=== PATIENT | male | born 1965 | race Hispanic/Latino ===

== ENCOUNTER 2016-07-09 17:43 | Emergency (ER) | payer OTHER ==
[~2016-07-09] VITALS: Ht 172.7 cm; Wt 122.8 kg
[~2016-07-09 17:43] MED LIST: IBUP-1827 PO; METH-313 PO
[2016-07-09 18:03] VITALS: BP 169/104; PULSE 81; RESP 16; O2SAT 97
== END 2016-07-09 20:40 | disposition left against medical advice (07) ==
LOC: SED 17:43
DX: M54.5 Low back pain (principal)

== ENCOUNTER 2016-08-27 23:28 | Emergency (ER) | payer MEDICAID, OTHER ==
[2016-08-27 23:30] VITALS: BP 168/105; PULSE 110; RESP 16; O2SAT 94
--- NOTE | 2016-08-27 23:56 | ED.REPORT ---
HPI-Extremity Problem Lower Date of Service August 27, 2016 ED Provider: Cam Black MD The patient is a 51 year old male with a history of chronic back pain and hypertension who presents to the ED with a right foot injury onset this evening. The patient "stepped wrong" on a curb and twisted his foot with immediate pain. He has been unable to bear weight on the affected foot since. The patient denies additional injury/trauma or other symptoms. Nursing Notes Stated Complaint: R FOOT PAIN Chief Complaint: Extremity Trauma Nursing Notes Reviewed: Yes Allergies: Coded Allergies: No Known Allergies (Unverified , 02/25/16) Scheduled Methocarbamol (Robaxin-750) 750 Mg Tablet 1,500 MG PO QID Scheduled PRN Ibuprofen (Ibuprofen) 600 Mg Tablet 600 MG PO QID PRN PRN For Pain General Time Seen by MD: 23:54 Chief Complaint Foot injury right Hx Obtained From: Patient Arrived By: Walk-in Onset Occurred: 1 - 4 hours ago Symptom Duration: Since onset Location: : Foot right Quality: Painful Severity: Current: Moderate Severity: Maximum: Moderate Pertinent Negative: Relieved by nothing Immunizations: Unknown Recent Healthcare: No recent doctor visit Past Medical History Past Medical History Chronic back pain Reports: Hypertension Past Surgical History None reported Smoking History Unknown if Ever Smoker Social History Other Social History: Good social support, Local resident Ambulatory Status Independent Review of Systems Constitutional: Denies: Fever Musculoskeletal: Reports: Extremity pain (Right Foot) Neurologic: Reports: Problem walking (Unable to bear weight on right foot) Complete sys rev & neg: except as marked. Respiratory: Denies: Non-productive cough, Shortness of breath GI: Denies: Diarrhea, Vomiting Physical Exam Initial Vital Signs Vital Signs (First) Date Time Temp Pulse Resp B/P Pulse Ox O2 Delivery O2 Flow Rate FiO2 08/27/16 23:30 37.2 110 16 168/105 94 Room Air Initial VS: Reviewed, Vital signs abnormal Head / Eyes: Atraumatic, Normocephalic ENT: Conjunctiva normal, No scleral icterus Neck: Supple, Full range of motion Skin: Warm, Dry, No cyanosis Neurologic: Alert, Oriented, Nonfocal Psychiatric: Mood/affect normal, Behavior normal, Normal thought content Ankle / Foot: Neurologic intact, Vascular intact Right Foot: Positive: Tender base 5th mtarsal General/Constitutional: Awake, Alert Interpretation & Diagnostics X-Ray Interpretation Xray Interpretation: No fracture Study Performed: 3 View X-Ray Ordered: Foot right Interpretation / Wet Read by: Wet read ED physician Re-Eval/Medical Decision Med Decision/Clinical Course 51-year-old male with tenderness and swelling at the base of the fifth metatarsal and across the top of his foot after a twisting fall. X-rays negative for fracture. He was fitted with a cast boot and crutches and will follow up with his primary doctor. He was also noted to be hypertensive. He will follow up with his primary doctor about that also. Re-Evaluation/Progress : Time of Eval: 00:55 Patient Status: Condition improved Re-Evaluation/Progress Note: Discussed with patient x-ray results, diagnosis, and plan for discharge. Follow-up and return to the ER instructions given. Patient agrees with plan for care and all questions were addressed. Counseled Regarding: Diagnosis, Need for follow-up, When/why to return to ED Discharge & Departure Impression: Primary Impression: Right foot sprain Encounter type: initial encounter Qualified Code: S93.601A - Unspecified sprain of right foot, initial encounter Disposition: Home Discharge Condition All VS Reviewed: Yes Condition: Improved Patient Instructions: Foot Sprain (ED) Additional Instructions: Thank you for entrusting us with your care. Your x-rays did not indicate a fracture. Wear the boot for two weeks. Take hydrocodone/acetaminophen as prescribed. (It contains acetaminophen so take that into account if you are taking additional acetaminophen. Do not drink alcohol or drive while on this medication. Call your regular doctor for a follow-up appointment. Return to the ER with any new or worsening symptoms. Referrals: Angie Perry (PCP) Scribe Attestation Portions of this note were transcribed by Aleshia Patel. I, Dr. Black, personally performed the history, physical exam, and medical decision-making; I reviewed and confirmed the accuracy of the information in the transcribed note. Signed by: Gale Medrano, 08/28/2016, 01:40 copies to: Angie Perry Howard L MD August 27, 2016 23:55 ALESHIA PATEL Aug 28, 2016 00:04
[2016-08-28] MEDS ORDERED: HYDROcodone-APAP 5-325 mg Tablet PO ONE
[2016-08-28] MEDS ORDERED: _HYDROcodone/APAP 5-325 mg Tablet PO PRN (01:00)
[2016-08-28 01:39] VITALS: BP 156/107; PULSE 106; RESP 18; O2SAT 94
--- NOTE | 2016-08-28 08:45 | DRSVH ---
PROCEDURE: X-RAY RIGHT FOOT COMPLETE, MINIMUM THREE VIEWS ([id number]) INDICATIONS: twisted on curb, tender 5th MT TECHNIQUE: 3 views of the foot were acquired. COMPARISON: None. FINDINGS: Bones: No fractures or dislocations. No suspicious bony lesions. Prominent plantar posterior calca valeriy spurring. There is also diffuse midfoot degenerative spurring. Soft tissues: No tibiotalar joint effusion. Achilles tendon appears normal. IMPRESSION: No fracture. Diffuse degenerative spurring including at the posterior and plantar calcaneus as above Dictated by: Yosef Wilson M.D. on 08/28/2016 at 8:42 Approved by: Yosef Wilson M.D. on 08/28/2016 at 8:44
== END 2016-08-28 01:42 | disposition home or self-care (01) ==
LOC: SED 23:28
DX: S93.691A Other sprain of right foot, initial encounter (principal); X50.1XXA Overexertion from prolonged static or awkward postures, initial encounter; Y93.89 Activity, other specified; Y92.481 Parking lot as the place of occurrence of the external cause; Y99.8 Other external cause status; I10 Essential (primary) hypertension